=== PATIENT | female | born 1940 | race Two or more races ===

== ENCOUNTER → 2024-03-29 | Emergency (ER) | payer OTHER ==
[~2024-03-29] VITALS: Ht 160 cm; Wt 59.0 kg
[~2024-03-29] MED LIST: CIPRO500 MG PO; ESTAZOLAM2 MG PO; METOPROLOL SUC200 MG PO
== END | disposition left against medical advice (07) ==
LOC: ER 16:06
DX: Z53.21 Procedure and treatment not carried out due to patient leaving prior to being seen by health care provider (principal)

== ENCOUNTER 2024-03-30 11:26 | Emergency (ER) | payer OTHER ==
[~2024-03-30] VITALS: Ht 162.6 cm; Wt 59.0 kg
[~2024-03-30 11:26] MED LIST changes: -CIPRO500 MG PO
[2024-03-30] MEDS ORDERED: DEXAMETHASONE SODIUM PHOSPHATE 4 MG/ML VIAL IM STA (16:24)
[2024-03-30] MEDS ORDERED: ORPHENADRINE CITRATE 30 MG/ML AMPUL IM STA (16:25)
[2024-03-30 17:37] LABS: HEMATOCRIT 42.1 % (36.0-45.00); HEMOGLOBIN 14.5 g/dL (12.0-15.00); MEAN CELL VOLUME 85.1 fL (80.00-100.00); MEAN CORPUSCULAR HEMOGLOBIN 29.4 pg (27.00-32.0); MEAN CORPUSCULAR HGB CONC 34.5 g/dl (32.0-36.0); PLATELET COUNT 152 K/uL (150-450); RED BLOOD COUNT 4.95 M/uL (4.00-6.00); RED CELL DISTRIBUTION WIDTH 14.8 % (11.5-14.5)
[2024-03-30 18:04] LABS: URINE APPEARANCE Clear; URINE BILIRRUBIN Negative (NEGATIVE); URINE BLOOD Negative; URINE COLOR Yellow; URINE GLUCOSE Negative (NEGATIVE); URINE KETONE Negative (NEGATIVE); URINE LEUKOCYTE Small; URINE NITRATE Negative; URINE PROTEIN Negative (NEGATIVE); URINE UROBILINOGEN 0.2 E.U./dl
[2024-03-30 18:09] LABS: URINE EPITHELIAL CELLS 5.7 uL (0.0-38.8); URINE WBC 118.2 uL (0.0-23.2)
[2024-03-30 19:03] LABS: URINE BACTERIA > 9821.5 uL (0.0-1933); URINE CAST 0.15 uL (0.0-1.40); URINE RBC 1.3 uL (0.0-20.8)
[2024-03-30] MEDS ORDERED: CIPRO500 MG PO (20:27)
== END 2024-03-30 21:05 | disposition home or self-care (01) ==
LOC: ER 11:26
DX: M25.562 Pain in left knee (principal); M19.90 Unspecified osteoarthritis, unspecified site
CPT/HCPCS: 36415; 96372; 99282; J1100; J2360

== ENCOUNTER 2024-04-15 15:06 | Outpatient (CLI) | payer OTHER ==
[~2024-04-15 15:06] MED LIST changes: +CIPRO500 MG PO
== END 2024-04-15 15:12 | disposition home or self-care (01) ==
LOC: RAD 15:06
PROVIDERS: ATTEND Internal Medicine Cardiovascular Disease
DX: M12.9 Arthropathy, unspecified (principal)

== ENCOUNTER 2024-04-16 09:50 | Outpatient (CLI) | payer OTHER | END 2024-04-16 09:51 | disposition home or self-care (01) | LOC: NUCLEAR 09:50 | PROVIDERS: ATTEND Internal Medicine Cardiovascular Disease | DX: I87.2 Venous insufficiency (chronic) (peripheral) (principal) ==

== ENCOUNTER 2024-04-24 19:42 | Inpatient (IN) | payer OTHER ==
[~2024-04-24] VITALS: Ht 162.6 cm; Wt 60.3 kg
--- NOTE | 2024-04-24 20:00 | NUR ---
SE RECIBE PACIENTE EN AMBULANCIA ALERTA Y ORIENTADA X3, REFIERE QUE DESDE HACE CUATRO BOLES PRESENTA CONSTIPACION Y DOLOR ABDOMINAL. SE MONITOREA BP MANUAL 76/58 MMHG; SE REALIZA EKG Y SE PRESENTA A .
[2024-04-24] MEDS ORDERED: FAMOTIDINE/PF 20 MG in 0.9 % SODIUM CHLORIDE 8 ML IV PUSH STA (20:37)
[2024-04-24] MEDS ORDERED: FAMOTIDINE/PF 20 MG/2 ML VIAL ONE (20:46)
--- NOTE | 2024-04-24 21:02 | NUR ---
PTE ALERTA Y ORIENTADA X3, SE EDUCA SOBRE TX MEDICO Y REFIERE ACEPTAR. SE COELCTAN MUESTRAS DE LAB BAJO MEDIDAS ASEPTICAS. SE ADMINISTRA MED COLIN ORDEN MEDICA Y NO PRESENTA REACCION. PREVIAMENTE CANALIZADA POR AMBULANCIA, PATENTE
[2024-04-24 21:05] LABS: HEMATOCRIT 40.9 % (36.0-45.00); HEMOGLOBIN 13.4 g/dL (12.0-15.00); MEAN CELL VOLUME 87.7 fL (80.00-100.00); MEAN CORPUSCULAR HEMOGLOBIN 28.7 pg (27.00-32.0); MEAN CORPUSCULAR HGB CONC 32.7 g/dl (32.0-36.0); PLATELET COUNT 149 K/uL (150-450); RED BLOOD COUNT 4.66 M/uL (4.00-6.00)
[2024-04-24] MEDS ORDERED: ONDANSETRON HCL 2 MG/ML VIAL IV ONE (21:30)
[2024-04-24 21:34] LABS: ALBUMIN 3.4 gm/dL (3.4-5.0); BILIRUBIN TOTAL 1.01 mg/dL (0.3-1.2); CALCIUM 8.8 mg/dL (8.5-10.1); CREATININE SERUM 1.89 mg/dL (0.55-1.02); GFR 25.28; GLOBULINA 3.5 G/DL (2.4-3.5); POTASSIUM 4.77 mEq/L (3.5-5.1); TOTAL PROTEIN 6.9 gm/dL (6.4-8.2)
[2024-04-24] MEDS ORDERED: ONDANSETRON HCL 2 MG/ML VIAL ONE (21:44)
[2024-04-24] MEDS ORDERED: DOPamine HCL IN DEXTROSE 5 % 250 ML IV SCH (23:30)
[2024-04-24] MEDS ORDERED: DOPamine HCL 400MG/D5w 250ML PLAST..BAG IV ONE (23:42)
[2024-04-25] VITALS (15 sets, daily range): BP systolic 112–171; BP diastolic 50–110; O2SAT 86–100
[2024-04-25] MEDS ORDERED: ONDANSETRON HCL 4 MG in 0.9 % SODIUM CHLORIDE 50 ML IV PRN (00:30)
[2024-04-25] MEDS ORDERED: 0.9 % SODIUM CHLORIDE 1,000 ML IV SCH (00:30)
[2024-04-25] MEDS ORDERED: ACETAMINOPHEN 325 MG TABLET PO PRN (00:30)
[2024-04-25 01:28] LABS: INR 1.12; PARTIAL THROMBOPLASTIN TIME 22.9 SECONDS (22.0-34.0); PROTHROMBIN TIME 12.1 SECONDS (9.0-11.5)
[2024-04-25 01:34] LABS: ALBUMIN 3.6 gm/dL (3.4-5.0); BILIRUBIN TOTAL 1.42 mg/dL (0.3-1.2); CREATININE SERUM 2.18 mg/dL (0.55-1.02); GFR 21.44; GLOBULINA 3.6 G/DL (2.4-3.5); MAGNESIUM 2.4 mg/dL (1.8-2.4); TOTAL PROTEIN 7.2 gm/dL (6.4-8.2)
[2024-04-25 02:23] LABS: POTASSIUM 6.18 mEq/L (3.5-5.1)
[2024-04-25 06:45] LABS: ALT/SGPT 135 U/L (12-78); AST/SGOT 215 U/L (15-37); LDH 390 U/L (84-246); PHOSPHOKINASE CREATININE 73 U/L (26-192)
[2024-04-25 07:06] LABS: TSH 2.11 uIU/mL (0.358-3.74)
[2024-04-25 07:24] LABS: ALBUMIN 3.5 gm/dL (3.4-5.0); BILIRUBIN TOTAL 1.47 mg/dL (0.3-1.2); CALCIUM 8.7 mg/dL (8.5-10.1); CREATININE SERUM 2.07 mg/dL (0.55-1.02); GFR 22.76; GLOBULINA 3.5 G/DL (2.4-3.5)
[2024-04-25 07:33] LABS: POTASSIUM 5.38 mEq/L (3.5-5.1)
[2024-04-25 08:23] LABS: PH,URINE 5.5 (5.0-8.0); URINE APPEARANCE Cloudy; URINE BILIRRUBIN Negative (NEGATIVE); URINE BLOOD Trace; URINE COLOR Dark Yellow; URINE GLUCOSE Negative (NEGATIVE); URINE KETONE Negative (NEGATIVE); URINE LEUKOCYTE Negative; URINE NITRATE Negative
[2024-04-25 08:27] LABS: URINE BACTERIA 917.9 uL (0.0-1933); URINE CAST 17.23 uL (0.0-1.40); URINE EPITHELIAL CELLS 99.4 uL (0.0-38.8); URINE RBC 4.7 uL (0.0-20.8); URINE WBC 66.3 uL (0.0-23.2)
[2024-04-25] MEDS ORDERED: ENOXAPARIN SODIUM 60 MG/0.6 ML SYRINGE SUBCUTANEO SCH (09:00)
[2024-04-25] MEDS ORDERED: PANTOPRAZOLE SODIUM 40 MG/VIAL VIAL IV SCH (09:00)
[2024-04-25 09:05] LABS: URINE PROTEIN 300 (NEGATIVE)
[2024-04-25] MEDS ORDERED: ENOXAPARIN SODIUM 60 MG/0.6 ML SYRINGE SUBCUTANEO ONE (09:05)
[2024-04-25 09:21] LABS: URINE CRYSTALS FEW /HPF
[2024-04-25] MEDS ORDERED: CHLORHEXIDINE GLUCONATE 120 ML BOTTLE TOP ONE (09:38)
[2024-04-25] MEDS ORDERED: GLUCAGON IV STA (10:56)
[2024-04-25] MEDS ORDERED: SODIUM CHLORIDE 0.9% IV STA (10:56)
[2024-04-25 12:30] LABS: ABG PH 7.347 (7.35-7.45); ABG pCO2 51.1 mmHg (35-45)
[2024-04-25 12:31] LABS: ABG PO2 58.4 mmHg (80-100); BASE EXCESS 0.8 mmol/l; BICARBONATE 27.4 mmol/l (23-25); SaO2 88.4 %
[2024-04-25 12:32] LABS: allen test SATISFACTORY; o2 21 %; puncture site RADIAL RIGHT
[2024-04-25 14:26] LABS: ABG PO2 474.5 mmHg (80-100); ABG pCO2 47.4 mmHg (35-45); BASE EXCESS 0.9 mmol/l; BICARBONATE 26.8 mmol/l (23-25); Tco2 28.3 mmol/l
[2024-04-25 14:33] LABS: allen test SATISFACTORY; o2 100 %; puncture site RADIAL RIGHT
[2024-04-25] MEDS ORDERED: HALOPERIDOL LACTATE 5 MG/ML AMPUL ONE (18:31)
[2024-04-25] MEDS ORDERED: HALOPERIDOL LACTATE 5 MG/ML AMPUL IM STA (18:31)
[2024-04-26 04:00] VITALS: BP 131/67; O2SAT 100
[2024-04-26 06:33] LABS: ALBUMIN 3.1 gm/dL (3.4-5.0); BILIRUBIN TOTAL 0.8 mg/dL (0.3-1.2); CREATININE SERUM 1.03 mg/dL (0.55-1.02); GFR 50.93; GLOBULINA 2.8 G/DL (2.4-3.5); POTASSIUM 3.72 mEq/L (3.5-5.1); TOTAL PROTEIN 5.9 gm/dL (6.4-8.2)
[2024-04-26 07:42] VITALS: BP 155/73; O2SAT 100
[2024-04-26] MEDS ORDERED: CHLORHEXIDINE GLUCONATE 120 ML BOTTLE TOP ONE (09:24)
[2024-04-26] MEDS ORDERED: DEXTROSE 50 % IN WATER 0.5 G/ML DISP.SYRIN IV ONE (10:30)
[2024-04-26] MEDS ORDERED: DEXTROSE 50 % IN WATER 0.5 G/ML DISP.SYRIN IV PRN (10:45)
[2024-04-26 11:28] LABS: ABG PH 7.323 (7.35-7.45); ABG PO2 112.2 mmHg (80-100); BASE EXCESS -1.7 mmol/l; BICARBONATE 24.9 mmol/l (23-25); SaO2 97.9 %; Tco2 26.4 mmol/l; allen test SATISFACTORY; o2 35 %; puncture site RADIAL RIGHT
[2024-04-26] MEDS ORDERED: DEXTROSE 5 %-0.45 % SOD CHLORD 1,000 ML IV SCH (11:30)
[2024-04-26 12:00] VITALS: BP 149/78; O2SAT 100
[2024-04-26 12:17] LABS: HEMATOCRIT 36.9 % (36.0-45.00); HEMOGLOBIN 12.4 g/dL (12.0-15.00); MEAN CORPUSCULAR HEMOGLOBIN 28.5 pg (27.00-32.0); MEAN CORPUSCULAR HGB CONC 33.5 g/dl (32.0-36.0); PLATELET COUNT 132 K/uL (150-450); RED BLOOD COUNT 4.34 M/uL (4.00-6.00); RED CELL DISTRIBUTION WIDTH 15.1 % (11.5-14.5)
[2024-04-26] MEDS ORDERED: hydrALAZINE HCL 50 MG TABLET PO SCH (13:00)
[2024-04-26 14:41] LABS: ABG PH 7.342 (7.35-7.45); ABG PO2 77.3 mmHg (80-100); ABG pCO2 49.7 mmHg (35-45); BASE EXCESS -0.2 mmol/l; BICARBONATE 26.3 mmol/l (23-25); SaO2 94.3 %; Tco2 27.8 mmol/l
[2024-04-26 14:44] LABS: allen test SATISFACTORY; o2 35 %; puncture site RADIAL RIGHT
[2024-04-26 20:00] VITALS: BP 127/68; O2SAT 100
[2024-04-26] MEDS ORDERED: ENOXAPARIN SODIUM 60 MG/0.6 ML SYRINGE SUBCUTANEO SCH (21:00)
[2024-04-26 23:32] VITALS: BP 123/80; O2SAT 99
[2024-04-27 04:00] VITALS: BP 150/72; O2SAT 100
[2024-04-27 07:01] VITALS: BP 148/61; O2SAT 100
[2024-04-27 12:00] VITALS: BP 144/79; O2SAT 100
[2024-04-27 15:24] VITALS: BP 156/92
[2024-04-27] MEDS ORDERED: hydrALAZINE HCL 20 MG VIAL IV PRN (18:45)
[2024-04-27 20:00] VITALS: BP 167/73; O2SAT 98
[2024-04-27 21:47] VITALS: O2SAT 99
[2024-04-28] VITALS (9 sets, daily range): BP systolic 157–164; BP diastolic 78–89; O2SAT 96–100
[2024-04-28 07:55] LABS: HEMATOCRIT 41.4 % (36.0-45.00); MEAN CELL VOLUME 85.7 fL (80.00-100.00); MEAN CORPUSCULAR HEMOGLOBIN 28.9 pg (27.00-32.0); MEAN CORPUSCULAR HGB CONC 33.7 g/dl (32.0-36.0); PLATELET COUNT 156 K/uL (150-450); RED BLOOD COUNT 4.84 M/uL (4.00-6.00); RED CELL DISTRIBUTION WIDTH 15.3 % (11.5-14.5)
[2024-04-28 08:38] LABS: ALBUMIN 2.6 gm/dL (3.4-5.0); BILIRUBIN TOTAL 0.8 mg/dL (0.3-1.2); CALCIUM 8.2 mg/dL (8.5-10.1); CREATININE SERUM 0.64 mg/dL (0.55-1.02); GFR 88.19; GLOBULINA 3.1 G/DL (2.4-3.5); POTASSIUM 3.59 mEq/L (3.5-5.1); TOTAL PROTEIN 5.7 gm/dL (6.4-8.2)
[2024-04-29 00:31] VITALS: O2SAT 97
[2024-04-30 10:29] VITALS: O2SAT 98
[2024-04-30 13:57] VITALS: O2SAT 98
[2024-04-30 16:53] VITALS: O2SAT 88
[2024-04-30 17:49] VITALS: BP 144/73; O2SAT 100
[2024-05-01] MEDS ORDERED: GUAIFENESIN/DEXTROMETHORPHAN 10ML BLIST.PACK PO SCH ×2 (01:00→17:00)
[2024-05-01] MEDS ORDERED: LEVALBUTEROL HCL 0.63 MG/3 ML SOLUTION IH SCH (01:00)
[2024-05-01 01:21] VITALS: BP 150/80
[2024-05-01 01:30] VITALS: O2SAT 98
[2024-05-01 05:20] VITALS: O2SAT 98
[2024-05-01 08:38] VITALS: O2SAT 97
[2024-05-01 08:52] VITALS: BP 135/62; O2SAT 97
[2024-05-01] MEDS ORDERED: LOSARTAN POTASSIUM 25 MG TABLET PO SCH (09:00)
[2024-05-01 14:22] VITALS: O2SAT 98
== END 2024-05-01 16:45 | disposition home or self-care (01) | DRG 309 ==
LOC: ER 19:42 → ICU-2 04-25 00:16 → ICU 04-25 00:16 → MEDJ 04-27 19:57 → ICU 04-27 20:12 → MEDJ 04-27 21:00
PROVIDERS: General Practice; Internal Medicine; ADMIT Internal Medicine; ATTEND Internal Medicine
PROC: BW21ZZZ Computerized Tomography (CT Scan) of Abdomen and Pelvis (ICD-10-PCS; principal; 2024-04-24)
PROC: BW28ZZZ Computerized Tomography (CT Scan) of Head (ICD-10-PCS; 2024-04-24)
PROC: BW40ZZZ Ultrasonography of Abdomen (ICD-10-PCS; 2024-04-25)
PROC: B24BYZZ Ultrasonography of Heart with Aorta using Other Contrast (ICD-10-PCS; 2024-04-25)
PROC: BW24YZZ Computerized Tomography (CT Scan) of Chest and Abdomen using Other Contrast (ICD-10-PCS; 2024-04-26)
PROC: 4A12X4Z Monitoring of Cardiac Electrical Activity, External Approach (ICD-10-PCS; 2024-04-27)
DX: I48.91 Unspecified atrial fibrillation (principal); J90 Pleural effusion, not elsewhere classified; N17.9 Acute kidney failure, unspecified; E87.5 Hyperkalemia; K57.90 Diverticulosis of intestine, part unspecified, without perforation or abscess without bleeding; I10 Essential (primary) hypertension

== ENCOUNTER 2024-07-17 18:28 | Emergency (ER) | payer OTHER ==
[~2024-07-17] VITALS: Ht 162.6 cm; Wt 63.5 kg
[2024-07-17] MEDS ORDERED: COZAAR100 MG (20:13)
[2024-07-17] MEDS ORDERED: CARVEDILOL ER40 MG (20:13)
[2024-07-17] MEDS ORDERED: ESTAZOLAM2 MG (20:13)
[2024-07-17] MEDS ORDERED: ELIQUIS2.5 MG (20:14)
[2024-07-17] MEDS ORDERED: cloNIDine HCL 0.2 MG TABLET PO STA (23:33)
[2024-07-18] MEDS ORDERED: CLONIDINE HCL 0.1 MG TABLET PO ONE (00:14)
[2024-07-18 00:34] LABS: HEMATOCRIT 43.3 % (36.0-45.00); HEMOGLOBIN 14.3 g/dL (12.0-15.00); MEAN CELL VOLUME 85.2 fL (80.00-100.00); MEAN CORPUSCULAR HEMOGLOBIN 28.2 pg (27.00-32.0); MEAN CORPUSCULAR HGB CONC 33.1 g/dl (32.0-36.0); PLATELET COUNT 197 K/uL (150-450); RED BLOOD COUNT 5.08 M/uL (4.00-6.00); RED CELL DISTRIBUTION WIDTH 13.9 % (11.5-14.5)
[2024-07-18 00:55] LABS: ALBUMIN 3.6 gm/dL (3.4-5.0); BILIRUBIN TOTAL 0.48 mg/dL (0.3-1.2); CALCIUM 9.4 mg/dL (8.5-10.1); CREATININE SERUM 0.94 mg/dL (0.55-1.02); GFR 56.59; POTASSIUM 3.7 mEq/L (3.5-5.1); TOTAL PROTEIN 8.6 gm/dL (6.4-8.2)
== END 2024-07-18 03:42 ==
LOC: ER 18:31
DX: I10 Essential (primary) hypertension (principal); I11.9 Hypertensive heart disease without heart failure